=== PATIENT | female | born 1990 ===

== ENCOUNTER 2023-06-19 14:01 | Outpatient (CLI) | payer OTHER | END 2023-06-19 14:02 | disposition home or self-care (01) | LOC: PRENATAL 14:01 | PROVIDERS: ATTEND Obstetrics & Gynecology Maternal & Fetal Medicine | DX: O26.849 Uterine size-date discrepancy, unspecified trimester (principal); O24.319 Unspecified pre-existing diabetes mellitus in pregnancy, unspecified trimester; Z3A.29 29 weeks gestation of pregnancy ==

== ENCOUNTER 2023-07-18 09:00 | Outpatient (CLI) | payer OTHER | END 2023-07-18 09:01 | disposition home or self-care (01) | LOC: PRENATAL 09:00 | PROVIDERS: ATTEND Obstetrics & Gynecology Maternal & Fetal Medicine | DX: O26.849 Uterine size-date discrepancy, unspecified trimester (principal); O36.8199 Decreased fetal movements, unspecified trimester, other fetus; O24.319 Unspecified pre-existing diabetes mellitus in pregnancy, unspecified trimester; Z3A.33 33 weeks gestation of pregnancy ==

== ENCOUNTER 2023-08-15 09:16 | Outpatient (CLI) | payer OTHER | END 2023-08-15 09:18 | disposition home or self-care (01) | LOC: PRENATAL 09:16 | PROVIDERS: ATTEND Obstetrics & Gynecology Maternal & Fetal Medicine | DX: O26.849 Uterine size-date discrepancy, unspecified trimester (principal); O36.8199 Decreased fetal movements, unspecified trimester, other fetus; O24.319 Unspecified pre-existing diabetes mellitus in pregnancy, unspecified trimester; Z3A.37 37 weeks gestation of pregnancy ==